=== PATIENT | female | born 1975 | race Caucasian/White ===

== ENCOUNTER 2017-11-07 07:57 | Outpatient (CLI) | payer BC ==
[2017-11-07] MEDS ORDERED: Iopamidol 370 76% 100 ML VIAL ONE (09:00)
--- NOTE | 2017-11-07 14:28 | CT ---
CT ABDOMEN AND PELVIS WITH IV CONTRAST: Date: 11-07-17 History: Generalized abdominal pain. Comparison: 05-26-16 FINDINGS: The lung bases are clear. Degenerative changes are seen in the lower lumbar spine. Nonobstructing calculus midportion left kidney is again seen. There is a subcentimeter too small to c haracterize hypodense lesion also again seen in the inferior pole left kidney. There is a hypodense lesion within the anterior aspect of the medial segment left hepatic lobe which is smaller in size measuring 18 mm x 10 mm, and previously measured 23 mm x 20 mm, and likely represe nts decrease in size of a small hepatic cyst. The spleen, pancreas, bilateral adrenal glands, right kidney, abdominal aorta, opacified bowel and ur inary bladder demonstrate a normal CT appearance. The uterus remains heterogeneous in appearance. There are low density areas within the cervix which c ould potentially be related to nabothian cysts, but this cannot be confirmed on this exam. However, a prominent nabothian cyst was seen on prior pelvic ultrasound on 04-10-13 which measured 1.6 cm on kendrick t exam. A 2.4 cm right adnexal cystic structures is present, likely related to small ovarian cysts. Left adne xal structures have a normal CT appearance. There is a moderate amount of retained fecal material seen throughout the colon. The appendix is not visualized, but there are no CT findings to suggest appendicitis. Minimal vascular calcifications are seen in the iliac arteries. Left ureteral stent has been removed from the prior exam. CT scan of the abdomen and pelvis is otherw ise unchanged. IMPRESSION: 1. No acute findings are seen in the abdomen or pelvis. 2. Nonobstructing left renal calculus with tiny subcentimeter too small to characterize hypodense les ion inferior pole left kidney. 3. Decrease in size of left hepatic lobe cyst. 4. Nonspecific heterogeneity of the uterus which could be related to uterine fibroids. In addition, t here is a prominent hypodense cystic structure in the cervix. This was also present on the prior exam and a prominent nabothian cyst was seen in the cervix on pelvic ultrasound in 2012. 5. Probable right ovarian cyst. 6. Constipation. POS: JHONY
== END 2017-11-07 07:58 | disposition home or self-care (01) ==
LOC: SCSCT 07:57
PROVIDERS: ATTEND Family Medicine
DX: R10.9 Unspecified abdominal pain (principal); N28.1 Cyst of kidney, acquired; K76.89 Other specified diseases of liver; K59.00 Constipation, unspecified; N85.8 Other specified noninflammatory disorders of uterus
CPT/HCPCS: 74177